=== PATIENT | male | born 1950 | race Caucasian/White ===

== ENCOUNTER 2016-12-02 15:13 | Emergency (ER) | payer MEDICARE ==
--- NOTE | 2016-12-02 16:05 | RAD ---
Indication: Lateral aspect pain RIGHT foot for one week. Comparison: No relevant prior exams available on the [facility] [place] for comparison. Technique: AP, lateral, and oblique views RIGHT foot. Report: Normal articular alignment. Negative for fracture or radiographic stigmata of stress reaction. Normal variant bipartite medial sesamoid at the first metatarsal phalangeal joint. Mild osteoarthritis at the first metatarsal phalangeal joint. Small os peroneum accessory ossicle. Small plantar fascia origin bone spur. Mild soft tissue swelling without focality. IMPRESSION: 1. Negative for fracture or stress reaction. 2. Mild first metatarsal phalangeal joint osteoarthritis. 3. Small plantar fascia origin bone spur. 4. Nonspecific mild soft tissue swelling.
--- NOTE | 2017-01-13 10:04 | UC ---
Lower Extremity/Ankle HPI - HPI Summary HPI Summary: pain in right foot and lateral side for 1 week no injury - History of Current Complaint Chief Complaint: UCLowerExtremity Stated Complaint: FOOT INJURY Time Seen by Provider: 12/02/16 15:26 Hx Obtained From: Patient Onset/Duration: Gradual Onset, Lasting Days - 5, Still Present Severity Initially: Moderate Severity Currently: Moderate Pain Intensity: 5 Pain Scale Used: 0-10 Numeric Aggravating Factor(s): Standing, Ambulation Alleviating Factor(s): Rest, Elevation Able to Bear Weight: Yes - Allergies/Home Medications Allergies/Adverse Reactions: Allergies Allergy/AdvReac Type Severity Reaction Status Date / Time Penicillins Allergy Swelling Verified 12/02/16 15:23 Home Medications: Home Medications Amphetamine-Dextroamphetamine [Adderall 30 mg-] 1 tab PO DAILY 12/02/16 [ History Confirmed 12/02/16] Fenofibrate(NF) [Tricor(NF)] 48 mg PO DAILY 12/02/16 [History Confirmed 12/02/16 ] Insulin GLARGINE(*) [Lantus(*)] 80 units SUBCUT BID 12/02/16 [History Confirmed 12/02/16] Metoprolol Tartrate TAB* [Lopressor TAB*] 100 mg PO DAILY 12/02/16 [History Confirmed 12/02/16] Valsartan TAB* [Diovan TAB*] 100 mg PO DAILY 12/02/16 [History Confirmed ] traMADol TAB* [Ultram*] 50 mg PO Q4H PRN 12/02/16 [History Confirmed 12/02/16] PMH/Surg Hx/FS Hx/Imm Hx Previously Healthy: No Endocrine History: Diabetes, Dyslipidemia Cardiovascular History: Hypertension - Surgical History Surgical History: Yes Surgery Procedure, Year, and Place: partial laminectomy 2016 - Family History Known Family History: Positive: None - Social History Occupation: Employed Full-time Lives: With Family Alcohol Use: None Substance Use Type: None Smoking Status (MU): Never Smoked Tobacco - Immunization History Most Recent Influenza Vaccination: 11/2016 Review of Systems Constitutional: Negative Skin: Negative Eyes: Negative ENT: Negative Respiratory: Negative Cardiovascular: Negative Gastrointestinal: Negative Genitourinary: Negative Motor: Negative Neurovascular: Negative Musculoskeletal: Arthralgia - right foot Neurological: Negative Psychological: Negative Is Patient Immunocompromised?: No All Other Systems Reviewed And Are Negative: Yes Physical Exam Triage Information Reviewed: Yes Appearance: Well-Appearing, Pain Distress, Obese Vital Signs: Initial Vital Signs Temp 98.7 F 12/02/16 15:17 Pulse 80 12/02/16 15:17 Resp 18 12/02/16 15:17 BP 141/80 12/02/16 15:17 Pulse Ox 97 12/02/16 15:17 Vital Signs Reviewed: Yes Eye Exam: Normal Eyes: Positive: Conjunctiva Clear ENT Exam: Normal ENT: Positive: Normal ENT inspection, Hearing grossly normal. Negative: Nasal congestion, Muffled voice, Hoarse voice Dental Exam: Normal Neck exam: Normal Respiratory Exam: Normal Respiratory: Positive: Chest non-tender, No respiratory distress, No accessory muscle use Cardiovascular Exam: Normal Cardiovascular: Positive: RRR, Pulses Normal, Brisk Capillary Refill Musculoskeletal Exam: Normal Musculoskeletal: Positive: Strength Intact, ROM Intact, No Edema Neurological Exam: Normal Neurological: Positive: Alert, Muscle Tone Normal Psychological Exam: Normal Skin Exam: Normal Diagnostics - Radiology No standard instances Xray Interpretation: Positive (See Comments) - oa, plantar fac. mild soft tissue swelling Radiology Interpretation Completed By: ED Physician, Radiologist Lower Extremity Course/Dx - Course Course Of Treatment: cam boot pain med, follow with pcp - Differential Dx/Diagnosis Provider Diagnoses: Hypertension with diagnosis in poor control, Planter Faciitis right foot Discharge - Discharge Plan Condition: Stable Disposition: HOME Patient Education Materials: Plantar Fasciitis Exercises (GEN), Plantar Fasciitis (ED), Hypertension (ED) Forms: *Work Release Referrals: Misha Herring MD [Medical Doctor] - 2 Days Eunice Guillen MD [Primary Care Provider] - 12/09/16
== END 2016-12-02 16:34 | disposition home or self-care (01) ==
LOC: UCCORT 15:13
DX: M72.2 Plantar fascial fibromatosis (principal); M19.071 Primary osteoarthritis, right ankle and foot; I10 Essential (primary) hypertension; Z88.0 Allergy status to penicillin; E11.9 Type 2 diabetes mellitus without complications; Z79.4 Long term (current) use of insulin; E78.5 Hyperlipidemia, unspecified; E66.9 Obesity, unspecified
CPT/HCPCS: 99202; G0463